=== PATIENT | female | born 1955 | race Caucasian/White ===

== ENCOUNTER 2021-11-18 09:45 | Outpatient (RCR) | payer MEDICARE, OTHER, SELFPAY | END 2022-11-12 23:59 | disposition home or self-care (01) | PROVIDERS: PCP Family Medicine; Visit Provider Orthopaedic Surgery Sports Medicine | DX: M25.551 Pain in right hip (principal); R26.9 Unspecified abnormalities of gait and mobility; Z51.89 Encounter for other specified aftercare | CPT/HCPCS: 97110 ==